=== PATIENT | female | born 1995 | race Caucasian/White ===

== ENCOUNTER 2022-05-22 20:42 | Emergency (ER) | payer OTHER, SELFPAY ==
[2022-05-22 21:05] VITALS: BP 137/86; PULSE 88; RESP 18; TEMP 36.8; O2SAT 98
[2022-05-22 21:52] LABS: Strep Group A RT-PCR NOT DETECTED (Negative)
[2022-05-22 22:00] LABS: Influenza A QL RT-PCR Positive (Negative); Influenza B QL RT-PCR Negative (Negative); SARS-CoV-2 RNA PCR Negative (Negative)
[2022-05-22 22:08] LABS: RSV RNA, RT-PCR Negative (Negative)
--- NOTE | 2022-05-22 23:02 | ED.URI ---
HPI - URI/Sore Throat General Chief Complaint: Upper Respiratory Infection Stated Complaint: possible r ear infection Time Seen by Provider: 05/22/22 20:46 Source: patient and RN notes reviewed Mode of arrival: ambulatory Limitations: no limitations History of Present Illness MD elicited complaint: cough, sore throat and nasal congestion Pertinent past history: sinusitis Onset (ago): day(s) (2) Consistency: constant and progressively worsening Severity: mild Pain scale (0-10): 5 Description of mucous: watery Able to tolerate fluids by mouth: Yes Exacerbating factors: nothing Relieving factors: OTC cold medicine Associated symptoms: myalgias, nasal congestion, sore throat, cough and ear pain Treatments prior to arrival: cold medicine Related Data Allergies Allergy/AdvReac Type Severity Reaction Status Date / Time No Known Allergies Allergy Verified 05/22/22 21:04 Review of Systems Review of Systems: All systems reviewed & are unremarkable except as noted in HPI and below Constitutional: Constitutional: Reports no additional constitutional complaints Eyes: Eyes: Reports no additional eye complaints ENT: Reports system reviewed and no additional complaints, except as documented Cardiovascular: Cardiovascular: Reports no additional cardiovascular complaints Respiratory: Respiratory: Reports no additional respiratory complaints Gastrointestinal: Gastrointestinal: Reports no additional gastrointestinal complaints Genitourinary: Genitourinary: Reports no additional female genitourinary complaints Musculoskeletal: Musculoskeletal: Reports no additional musculoskeletal complaints Integumentary/Breasts: Skin/Breast: Reports system reviewed and no additional complaints, except as docu Neurologic: Reports system reviewed and no additional complaints, except as documented Psychiatric: Psychiatric: Reports no additional psychiatric complaints Endocrine: Endocrine: Reports no additional endocrine complaints Hematologic/Lymphatic: Hematologic/Lymphatic: Reports no additional hematologic/lymphatic complaints Allergic/Immunologic: Allergic/Immunologic: Reports no additional allergic/immunologic complaints PMFSH Past Medical History Medical History Flu Pharyngitis Exam Const: General: no acute distress and well nourished Nutritional Appearance: well nourished Orientation/consciousness: patient oriented x3 Limitations: no limitations HENMT: Head: normal to inspection Ears: external ears normal, TM's normal bilaterally and EAC's normal Face/Nose/Sinus: Normal external nose present, Normal nares present, normal facial exam and sinuses nontender Face and sinus: normal facial exam and sinuses nontender Mouth: Yes Normal oral and palatal mucosa present and Yes moist mucous membranes Teeth and gingiva: dentition normal Throat: posterior oropharynx normal (mild pharyngeal redness) Eyes: Conjunctivae: conjunctivae normal Pupils: Equal, round and reactive pupils present EOM: EOMs intact bilaterally Neck: Neck: normal visual inspection, no lymphadenopathy and no meningeal signs Chest: Chest palpation & inspection: normal inspection of the chest Resp: Effort & Inspection: normal respiratory effort Auscultation: clear to auscultation bilaterally Cardio: Rate: regular rate Rhythm: regular rhythm GI: GI Palp: Yes Soft to palpation and No Tenderness to palpation present (GI) Auscultation: normal bowel sounds : General: Yes bladder normal to palpation and Yes no CVA tenderness Bimanual exam- vagina & uterus: bladder normal to palpation Back/Spine/Pelvis: Back: no CVA tenderness Skin: General skin exam: normal color Rashes: no rashes Wounds: no wounds Neuro: General: patient oriented x3, moves all extremities, no meningeal signs, no focal motor deficits and CN's II-XI intact bilaterally Cranial nerves: Yes Equal, round and reactive pupils present and Yes Ny
[2022-05-22] MEDS: guaiFENesin 12 HR 600 MG TABCR PO (23:14)
[2022-05-22] MEDS: IBUPROFEN 400 MG TABLET 800 MG PO (23:14)
[2022-05-22 23:17] VITALS: BP 130/80; PULSE 90; RESP 20; TEMP 37; O2SAT 95
== END 2022-05-22 23:20 | disposition home or self-care (01) ==
PROVIDERS: Emergency Provider Emergency Medicine
DX: H69.90 Unspecified Eustachian tube disorder, unspecified ear (principal); J10.1 Influenza due to other identified influenza virus with other respiratory manifestations; Z20.822 Contact with and (suspected) exposure to COVID-19
CPT/HCPCS: 87637; 87651; 99283; A9270

== ENCOUNTER 2022-07-17 08:55 | Emergency (ER) | payer OTHER, SELFPAY ==
[2022-07-17 08:55] VITALS: BP 159/97; PULSE 125; RESP 18; TEMP 36.8; O2SAT 99
--- NOTE | 2022-07-17 09:23 | PC.NURSE ---
Pt ambulated to bathroom with steady gait
--- NOTE | 2022-07-17 09:27 | ED.SKABFB ---
HPI - Skin/Abscess/Foreign Bdy General Chief complaint: Skin/Abscess/Foreign Body Stated complaint: abscess Time Seen by Provider: 07/17/22 09:27 Source: patient and RN notes reviewed Mode of arrival: ambulatory Limitations: no limitations History of Present Illness complaint: abscess/boil Onset (ago): day(s) (2) Location: genitals Severity: moderate Quality: burning, aching and constant Pain Consistency: constant Relieving factors: other (Compresses) Exacerbating factors: palpation Context: none Associated symptoms: denies other symptoms Treatments prior to arrival: none and attempted to drain pus at home Related Data Home Medications Medication Instructions Recorded Confirmed escitalopram oxalate 10 mg tablet 10 mg PO DAILY 07/17/22 07/17/22 gabapentin 100 mg capsule 100 mg PO TID 07/17/22 07/17/22 Allergies Allergy/AdvReac Type Severity Reaction Status Date / Time No Known Allergies Allergy Verified 07/17/22 09:05 Review of Systems Review of Systems: All systems reviewed & are unremarkable except as noted in HPI and below PMFSH Past Medical History Medical History (Updated 07/17/22 @ 09:40 by Titus Lin MD) Flu Pharyngitis Surgical History Surgical History (Updated 07/17/22 @ 09:37 by Titus Lin MD) History of bilateral tubal ligation History of section Exam Const: General: healthy appearing, no acute distress and alert Nutritional Appearance: well nourished Orientation/consciousness: patient oriented x3 Limitations: no limitations HENMT: Head: normal to inspection Ears: external ears normal Eyes: Conjunctivae: conjunctivae normal Pupils: Equal, round and reactive pupils present EOM: EOMs intact bilaterally Neck: Neck: normal visual inspection Resp: Effort & Inspection: normal respiratory effort Auscultation: clear to auscultation bilaterally Cardio: Rate: regular rate Rhythm: regular rhythm GI: GI Palp: Yes Soft to palpation and No Tenderness to palpation present (GI) Auscultation: normal bowel sounds Back/Spine/Pelvis: Cervical Spine: cervical ROM normal Thoracic/Lumbar Spine: thoraco-lumbar ROM normal Skin: General skin exam: normal color Lesions: lesion noted ( total of 4 abscesses right lower is draining) pustule bilateral labia majora borders well-defined, consistency soft, fluctuant and mobile, morphology and tender Neuro: General: patient oriented x3, no focal motor deficits and CN's II-XI intact bilaterally Speech: normal speech Gait exam (Neuro): Normal gait present Extrem: General: normal to inspection and no clubbing, cyanosis or edema Psych: Mental Status: mental status grossly normal Affect: normal affect Attitude: cooperative Course Vital Signs Vital signs: Vital Signs Temperature 36.8 C 07/17/22 08:55 Pulse Rate 125 H 07/17/22 08:55 Respiratory Rate 18 07/17/22 08:55 Blood Pressure 159/97 H 07/17/22 08:55 Pulse Oximetry 99 07/17/22 08:55 Oxygen Delivery Room Air 07/17/22 08:55 Temperature 36.8 C 07/17/22 08:55 Pulse Rate 125 H 07/17/22 08:55 Respiratory Rate 18 07/17/22 08:55 Blood Pressure 159/97 H 07/17/22 08:55 Pulse Oximetry 99 07/17/22 08:55 Oxygen Delivery Room Air 07/17/22 08:55 MDM - Skin/Abscess/Foreign Bdy MDM Narrative Medical decision making narrative: since patient has 4 different abscesses on bilateral labia going to start her on antibiotics rather than incise and drain. She is given strict follow-up instructions of following up with her water resources technical officer for possible I and D of the abscesses. Differential Diagnosis Differential diagnosis: Likely abscess of skin or subcutaneous tissue and other ( Bartholin's cyst abscess) Discharge Plan Discharge Clinical Impression: Abscess of skin or subcutaneous tissue Qualifiers: Site of cutaneous abscess: other site Qualified Code(s): L02.818 - Cutaneous abscess of other sites Patient Disposition: Home, Self-Care Conditio
--- NOTE | 2022-07-17 09:36 | PC.NURSE ---
This RN at bedside with MD as chief radiation therapist for pelvic exam
[2022-07-17 09:46] VITALS: PULSE 98; O2SAT 99
== END 2022-07-17 09:46 | disposition home or self-care (01) ==
PROVIDERS: Emergency Provider Emergency Medicine
DX: L02.818 Cutaneous abscess of other sites (principal)
CPT/HCPCS: 99283

== ENCOUNTER 2023-02-19 14:32 | Emergency (ER) | payer OTHER, SELFPAY ==
[2023-02-19 14:32] VITALS: BP 154/80; PULSE 120; RESP 18; TEMP 38.8; O2SAT 100
[2023-02-19] MEDS: ACETAMINOPHEN 500 MG TABLET 1000 MG PO (14:59)
[2023-02-19 15:22] LABS: Influenza A QL RT-PCR Negative (Negative); Influenza B QL RT-PCR Negative (Negative); SARS-CoV-2 RNA PCR Negative (Negative)
[2023-02-19 15:25] LABS: RSV RNA, RT-PCR Negative (Negative)
--- NOTE | 2023-02-19 15:41 | ED.GENADULT ---
HPI - General Adult General Chief complaint: Upper Respiratory Infection Stated complaint: BODY ACHES Time Seen by Provider: 02/19/23 14:35 Source: patient Mode of arrival: ambulatory Limitations: no limitations History of Present Illness HPI narrative: patient is a 27-year-old female with generalized body aches and pains. She has fatigue and myalgia. She is running a fever. Onset (ago): day(s) (1) Severity: moderate Severity scale (1-10): 5 Quality: aching and constant Pain Consistency: constant Relieving factors: none Exacerbating factors: none Associated symptoms: fever/chills, malaise and weakness Treatments prior to arrival: none Related Data Home Medications Medication Instructions Recorded Confirmed escitalopram oxalate 10 mg tablet 10 mg PO DAILY 07/17/22 02/19/23 gabapentin 100 mg capsule 300 mg PO BID 07/17/22 02/19/23 Allergies Allergy/AdvReac Type Severity Reaction Status Date / Time No Known Allergies Allergy Verified 02/19/23 14:43 Review of Systems Review of Systems: All systems reviewed & are unremarkable except as noted in HPI and below Constitutional: Constitutional: Reports no additional constitutional complaints Eyes: Eyes: Reports no additional eye complaints ENT: Reports system reviewed and no additional complaints, except as documented Cardiovascular: Cardiovascular: Reports no additional cardiovascular complaints Respiratory: Respiratory: Reports no additional respiratory complaints Gastrointestinal: Gastrointestinal: Reports no additional gastrointestinal complaints Genitourinary: Genitourinary: Reports no additional female genitourinary complaints Musculoskeletal: Musculoskeletal: Reports no additional musculoskeletal complaints Integumentary/Breasts: Skin/Breast: Reports system reviewed and no additional complaints, except as docu Neurologic: Reports system reviewed and no additional complaints, except as documented Psychiatric: Psychiatric: Reports no additional psychiatric complaints Endocrine: Endocrine: Reports no additional endocrine complaints Hematologic/Lymphatic: Hematologic/Lymphatic: Reports no additional hematologic/lymphatic complaints Allergic/Immunologic: Allergic/Immunologic: Reports no additional allergic/immunologic complaints PMFSH Past Medical History Medical History Flu Pharyngitis Surgical History Surgical History History of bilateral tubal ligation History of section Exam Const: General: no acute distress, alert and ill appearing; No confusion or diaphoretic Nutritional Appearance: well nourished Orientation/consciousness: patient oriented x3 Limitations: no limitations HENMT: Head: normal to inspection Ears: external ears normal Eyes: Conjunctivae: conjunctivae normal Pupils: Equal, round and reactive pupils present EOM: EOMs intact bilaterally Neck: Neck: normal visual inspection Chest: Chest palpation & inspection: normal inspection of the chest Resp: Effort & Inspection: normal respiratory effort Auscultation: clear to auscultation bilaterally Cardio: Rate: regular rate Rhythm: regular rhythm Heart sounds: no murmurs GI: Inspection: non-distended GI Palp: Yes Soft to palpation, No Tenderness to palpation present (GI), No Guarding due to palpation present (GI) and No Rigid due to palpation Auscultation: normal bowel sounds : General: Yes bladder normal to palpation Back/Spine/Pelvis: Back: no CVA tenderness Skin: General skin exam: normal color Rashes: no rashes Wounds: no wounds Neuro: General: patient oriented x3 Cranial nerves: Yes Nystagmus not present Speech: normal speech Gait exam (Neuro): Normal gait present Extrem: General: normal to inspection, no clubbing, cyanosis or edema and no pedal edema Psych: Mental Status: mental status grossly normal Affect: normal affect Attitu
[2023-02-19 15:45] VITALS: BP 132/70; PULSE 108; RESP 18; TEMP 37.4; O2SAT 100
[2023-02-19 15:49] VITALS: TEMP 37.4
--- NOTE | 2023-02-19 15:50 | PC.NURSE ---
PT IS DIAPHORETIC UPON DC. PT REPORTS SHE IS FEELING BETTER AT THIS TIME. NAD NOTED.
== END 2023-02-19 15:45 | disposition home or self-care (01) ==
PROVIDERS: Emergency Provider Emergency Medicine
DX: U07.1 COVID-19 (principal)
CPT/HCPCS: 87637; 99283

== ENCOUNTER 2023-09-19 16:27 | Emergency (ER) | payer OTHER, SELFPAY ==
[2023-09-19 16:31] VITALS: BP 144/98; PULSE 99; RESP 20; TEMP 37.1; O2SAT 98
--- NOTE | 2023-09-19 16:36 | ED.WOUNDLAC ---
HPI - Wound/Laceration General Chief Complaint: Wound/Laceration Stated Complaint: left side of chin skin infection Time Seen by Provider: 09/19/23 16:32 Source: patient Mode of arrival: ambulatory Limitations: no limitations History of Present Illness HPI narrative: has a abscess on her left lower chin area that she try to express/ pop but has led to some extension with erythema warmth tenderness and swelling nonfluctuant with tender submandibular gland mainly on the left with no shortness of breath no fever chills. Onset (ago): day(s) Location: other Place: home Related Data Home Medications Medication Instructions Recorded Confirmed escitalopram oxalate 10 mg tablet 10 mg PO DAILY 07/17/22 02/19/23 gabapentin 100 mg capsule 300 mg PO BID 07/17/22 02/19/23 Allergies Allergy/AdvReac Type Severity Reaction Status Date / Time No Known Allergies Allergy Verified 02/19/23 14:43 Review of Systems Review of Systems: All systems reviewed & are unremarkable except as noted in HPI and below PMFSH Past Medical History Medical History Flu Pharyngitis Surgical History Surgical History History of bilateral tubal ligation History of section Exam Const: General: healthy appearing and no acute distress Nutritional Appearance: well nourished Orientation/consciousness: patient oriented x3 Limitations: no limitations HENMT: Other: Red erythematous area and swelling left lower chin Eyes: Conjunctivae: conjunctivae normal Neck: Neck: lymphadenopathy Resp: Effort & Inspection: normal respiratory effort Auscultation: clear to auscultation bilaterally Cardio: Rate: regular rate Rhythm: regular rhythm Course Course Emergency Course: evaluated patient and will be sending antibiotics to her local pharmacy. Vital Signs Vital signs: Vital Signs Temperature 37.1 C 09/19/23 16:31 Pulse Rate 99 09/19/23 16:31 Respiratory Rate 20 09/19/23 16:31 Blood Pressure 144/98 H 09/19/23 16:31 Pulse Oximetry 98 09/19/23 16:31 Oxygen Delivery Room Air 09/19/23 16:31 Temperature 37.1 C 09/19/23 16:31 Pulse Rate 99 09/19/23 16:31 Respiratory Rate 20 04/04/24 16:31 Blood Pressure 144/98 H 09/19/23 16:31 Pulse Oximetry 98 09/19/23 16:31 Oxygen Delivery Room Air 09/19/23 16:31 Critical Care Time Critical Care Time Critical Care Time: No Discharge Plan Discharge Clinical Impression: Cellulitis and abscess of face Patient Disposition: Home, Self-Care Condition: Stable Instructions: Antibiotic Form, Cellulitis (ED) Additional Instructions: advised patient to take antibiotics as prescribed, and naproxen as needed and if symptoms persist or worsen should return to nearest emergency department otherwise follow-up primary care physician. Prescriptions: New amoxicillin-pot clavulanate [Augmentin] 500-125 mg tablet 1 tablet PO TID Qty: 30 0RF naproxen 500 mg tablet 500 mg PO BID PRN (Reason: pain) Qty: 20 0RF No Action gabapentin 100 mg capsule 300 mg PO BID escitalopram oxalate 10 mg tablet 10 mg PO DAILY Follow-up/Referrals: Live,Alma Walker MD [Primary Care Provider] - Time of Disposition: 16:40
--- NOTE | 2023-09-19 16:53 | PC.NURSE ---
On 09/19/23, the student, Radha Garcia, provided care and completed [facility] documentation on this patient. I have reviewed the student's documentation and agree with the findings.
[2023-09-19 16:54] VITALS: BP 137/84; PULSE 94; RESP 20; TEMP 37.1; O2SAT 99
== END 2023-09-19 16:54 | disposition home or self-care (01) ==
LOC: CHSED 16:46
PROVIDERS: Emergency Provider Emergency Medicine; PCP Family Medicine
DX: L02.01 Cutaneous abscess of face (principal)
CPT/HCPCS: 99283

== ENCOUNTER 2024-02-19 11:40 | Emergency (ER) | payer OTHER, SELFPAY ==
--- NOTE | ~2024-02-19 | XR_ITS ---
XR ankle LT min 3V 02/19/2024 11:57 Indication: Left ankle pain Procedure: 4 views left ankle Comparison: No prior studies for comparison. Findings: No acute fracture, subluxation or dislocation. Small loose body adjacent to the medial mall eolus. Ankle mortise intact. Talar dome is normal. Mild lateral soft tissue swelling.. Impression: 1: No acute bone or joint abnormality. Reviewed, dictated and finalized at location B. Impression: 1: No acute bone or joint abnormality.
[2024-02-19 11:40] VITALS: BP 122/87; PULSE 73; RESP 16; TEMP 36.6; O2SAT 98
--- NOTE | 2024-02-19 11:54 | ED.LOWEXIN ---
HPI - Extremity Injury (Lower) General Chief Complaint: Extremity Injury, Lower Stated Complaint: left ankle injury Time Seen by Provider: 02/19/24 11:44 Source: patient Mode of arrival: ambulatory History of Present Illness HPI Narrative: Patient is a 28-year-old female with a significant past medical history that presents today for left ankle injury. Patient states that she was stepping onto her camper and the conversation made her sleep she slipped off the step and hurt her left ankle. She does have a history of multiple left ankle sprains. Is very swollen around the left lateral malleolus. complaint: ankle injury Onset (ago): hour(s) Injury: Left: ankle Type of Injury: inversion Place: home Severity: mild Severity scale (1-10): 3 Relieving factors: nothing Exacerbating factors: weight bearing and movement Context: direct blow Associated symptoms: swelling Other symptoms: none Treatments prior to arrival: NSAIDS Related Data Allergies Allergy/AdvReac Type Severity Reaction Status Date / Time No Known Allergies Allergy Verified 02/19/24 11:43 Review of Systems Review of Systems: All systems reviewed & are unremarkable except as noted in HPI and below Constitutional: Constitutional: Reports as per HPI Eyes: Eyes: Reports no additional eye complaints ENT: Reports system reviewed and no additional complaints, except as documented Cardiovascular: Cardiovascular: Reports no additional cardiovascular complaints Respiratory: Respiratory: Reports no additional respiratory complaints Gastrointestinal: Gastrointestinal: Reports no additional gastrointestinal complaints Genitourinary: Genitourinary: Reports no additional female genitourinary complaints Musculoskeletal: Musculoskeletal: Reports no additional musculoskeletal complaints Integumentary/Breasts: Skin/Breast: Reports system reviewed and no additional complaints, except as docu Neurologic: Reports system reviewed and no additional complaints, except as documented Psychiatric: Psychiatric: Reports no additional psychiatric complaints Endocrine: Endocrine: Reports no additional endocrine complaints Hematologic/Lymphatic: Hematologic/Lymphatic: Reports no additional hematologic/lymphatic complaints Allergic/Immunologic: Allergic/Immunologic: Reports no additional allergic/immunologic complaints PMFSH Past Medical History Medical History Flu Pharyngitis Surgical History Surgical History History of bilateral tubal ligation History of section Exam Const: General: healthy appearing, no acute distress and alert Nutritional Appearance: well nourished Orientation/consciousness: patient oriented x3 HENMT: Head: normal to inspection Ears: external ears normal Face/Nose/Sinus: Normal external nose present Face and sinus: normal facial exam Eyes: Conjunctivae: conjunctivae normal Pupils: Equal, round and reactive pupils present EOM: EOMs intact bilaterally Neck: Neck: normal visual inspection Chest: Chest palpation & inspection: normal inspection of the chest Resp: Effort & Inspection: normal respiratory effort Auscultation: clear to auscultation bilaterally Cardio: Rate: regular rate Rhythm: regular rhythm GI: GI Palp: Yes Soft to palpation Back/Spine/Pelvis: Back: no CVA tenderness Skin: General skin exam: normal color Neuro: General: patient oriented x3 Cranial nerves: Yes Nystagmus not present Speech: normal speech Extrem: General: normal to inspection Psych: Mental Status: mental status grossly normal Course Vital Signs Vital signs: Vital Signs Temperature 97.8 F 02/19/24 11:40 Pulse Rate 73 02/19/24 11:40 Respiratory Rate 16 02/19/24 11:40 Blood Pressure 122/87 02/19/24 11:40 Pulse Oximetry 98 02/19/24 11:40 Oxygen Delivery Room Air 02/19/24 11:40 Temperature 97.8 F
--- NOTE | 2024-02-19 12:15 | PC.NURSE ---
Pt resting comfortably in stretcher.
[2024-02-19 13:13] VITALS: BP 132/87; PULSE 73; RESP 16; TEMP 35.9; O2SAT 98
== END 2024-02-19 13:13 | disposition home or self-care (01) ==
PROVIDERS: Emergency Provider Family Medicine; PCP Family Medicine
DX: S93.402A Sprain of unspecified ligament of left ankle, initial encounter (principal); W10.8XXA Fall (on) (from) other stairs and steps, initial encounter
CPT/HCPCS: 73610; 99283

== ENCOUNTER 2025-02-10 08:14 | Emergency (ER) | payer MEDICAID, SELFPAY ==
--- OUTSIDE RECORDS SUMMARY | 2019-01-19 08:05 | XMS_ITS | Continuity of Care Document ---
Author Organization [facility] Address [address] [facility] [address] [place] [address] Phone Care Team Providers Care Marker Delivery Name Role Phone Nellie Currie APRN Unavailable Unavailable Allergies, Adverse Reactions, Alerts Substance Reaction Status Criticality No Known Allergies Active No Inform ation Medications Medication Instructions Dosage Effective Dates (start - stop) Status Comments Macrobid 100 mg capsule take 1 capsule by oral route every 12 hours with food for 5 days 100 MG - Active labetalol 200 mg tablet take 1 tablet by ORAL route 2 times every day 200 MG - Active Zithromax Z-[place] 250 mg tablet take 2 tablet by oral route every day for 1 day then 1 tablet (250 mg) by oral route once daily for 4 days 500 MG - No Longer Active Procedures Procedure Date Office/outpatient visit,est, mod 2018 No Charge Per Provider Urinalysis, automated w/microscopy Office/outpatient visit,est, mod 2016 No Charge Follow Up Office/outpatient visit,est, mod 2016 Office/outpatient visit,est, mod 2015 EKG Echo Complete All Dopplers Metabolic panel, basic Venipuncture Automated hemogram (CBC)L No Charge Urinalysis, automated w/microscopy Chest x-ray, two views Office/outpatient visit,est, mod 2015 THER/PROPH/DIAG INJ, SC/IM Toradol inj 15mg Ceftriaxone Injection 250 MG 1 GM Vial J THER/PROPH/DIAG INJ, SC/IM Ceftriaxone Injection 250 MG 1 GM Vial J Office/outpatient visit,fan rodriguez 2014 Advance Directives Directive Yes / No Effective Date File Name No Information Encounters Encounter Description Practice Location Reason(s) For Visit Diagnoses Date Provider Providers Copied on Encounter Office/outpa tient visit,[facility], [facility], [address], [id number], tel:[phone] [facility] [place] [facility] sore throat (chief complaint) CoughAcute upper respiratory infection, unspecified 9 [facility] [address], [id number], . tel:[phone] Referring Provider: Nellie Hendersonh, [address], [address]. tel:[phone] [facility], [address], [id number], tel:[phone] [facility] [place] Dizziness and giddiness [address]. [address], [place], [place], [id number], [place]. tel:[phone] Referring Provider: Ambreen Ace, [address], [place], [address]. tel:[phone] Office/outpa tient visit,[facility], [facility], [address], [id number], [place] tel:[phone] [facility] [place] shortness of breath (chief complaint) Urinary tract infection, site not specifiedDiz ziness and giddiness [address]. [address], [place], [place], [id number], [place]. tel:[phone] Referring Provider: Ambreen Ace, [address], [place], [address]. tel:[phone] [facility], [address] [place] [address], [id number], [place] tel:[phone] [facility] Ear pain (chief complaint) Otitis media, unspecified, left ear 7 Nasim Hall. [address], [place], [id number], [place]. tel:[phone] Referring Provider: Rafael Braswell, [address], [place], [address]. tel:[phone] Office/outpa tient visit,est, [facility], [address], [place], [id number], [place] tel:[phone] [facility] e Ear pain (chief complaint) Otitis media, unspecified, right ear 7 Nasim Hall. [address], [place], [place], [id number], [place]. tel:[phone] Referring Provider: Rafael Braswell, [address], [place], [address]. tel:[phone] Office/outpa tient visit,est, [facility], [address], [place], [place], [id number], [place] tel:[phone] [facility] Dyspnea (chief complaint) Dizziness (chief complaint) follow up (chief complaint) Mitral valve vegetation 6 Gregg Samuels. [address], [place], [place], [id number], [place]. tel:[phone] Referring Provider: Akua Eddy, [address] [place] [address], [place], [address]. tel:[phone] [facility], [address] [place], [place] [address] [address] [place] [address], [id number], tel:[phone] [facility] No Information 6 Bruce Gu. [address] [facility] , [address] [place] [address], [id number], [place]. tel:[phone] Referring Provider: Akua Eddy, [address] [place] [address], [address]. tel:[phone] [facility], [address] [place] [address], [id number], tel:[phone] [facility] Fever, unspecified 6 Nikolai Fatima. [facility] , [address], [id number], [place]. tel:[phone] Referring Provider: Akua Eddy, [address] [place] [address], [address]. tel:[phone] [facility], [address] [place] [address], [id number], tel:[phone] [facility] No Information 6 Bruce Gu. [address], [address] [place] [address], [id number], [place]. tel:[phone] Referring Provider: Akua Eddy, [address] [place] [address], [address]. tel:[phone] Office/outpa tient visit,est, mod [facility], [address] [place] [address], [id number], tel:[phone] [facility] nidia Headache (UC) (chief complaint) Tooth abscessHypok alemia 6 Head Akua. [address] [place], [place] [address], [id number], . tel:[phone] Referring Provider: Akua Eddy, [address] [place] [address], [address] [place] [address]. tel:[phone] [facility], [address] [place] [address], [id number], tel:[phone] [facility] nidia No Information 6 Head Akua. [address] [place] [address], [id number], . tel:[phone] Referring Provider: Akua Eddy, [address] [place] [address], [address] [place] [address]. tel:[phone] Office/outpa tient visit,new, [facility], [address] [place] [address], [id number], tel:[phone] [facility] New patient visit (chief complaint) HeadacheChia ri malformation Family history of breast cancer [place]. [facility] [place], [id number], . tel:[phone] Referring Provider: Amos Calzada, [address] [place], [address]. tel:[phone] Family History Family Member Type Diagnosis Age At Onset Mother Problem (finding) diabetes melli tus in first degree relative Maternal grandfather Problem (finding) coronary arteri osclerosis Maternal aunt Problem (finding) breast cancer Maternal aunt Problem (finding) malignant neoplasm of ovary Maternal aunt Problem (finding) malignant neoplasm of lung Payers Payer name Insurance type Covered republican ID Authoriza tijam(s) [employer] Medicaid [id number] Social History Type Description Quantity Date Captured Comments Alcohol Use Details Unknown Caffeine Use Details Unknown Tobacco Use Status No Information Smoking Status No Information Sex Female Chief Complaint And Reason For Visit From encounter dated '01/19/2019 13:05'. sore throat (chief complaint). Description: Onset: 2 Days. The symptoms are persistent. Associated symptoms include cough. Reason For Referral Reason For Referral No Information Plan Of Treatment Date Type Action Status Goal PAP. Due on due Goal Flu Vaccine (18 to 64). Due on due Goal HPV (1st). Due on 9 due Goal Tdap. Due on due Goal Flu (3 Years and above). Due on due Goal Td vaccine. Due on 19 due Goal Depression screening. Due on due Goal PAP. Due on due Goal HPV (1st). Due on 7 due Goal Depression screening. Due on due Goal Tdap. Due on due Goal Td vaccine. Due on 17 due Goal Flu (3 Years and above). Due on due Future Order: Lab Order Potassium (K), Se nt on: Sent Future Order: Lab Order Complete Blood Count (CBC), Sent on: Sent Future Order: Lab Order Comprehe nsive Metabolic Panel (CMP), Sent on: Sent Future Order: Lab Order Lipid Panel (LIPI D), Sent on: Sent Future Order: Lab Order TSH (TSH), Sent o n: Sent Future Order: Lab Order Vitamin D, 25-Hydroxy ([id number]), Sent on: Sent Future Order: Lab Order Vitamin B12 (B12) , Sent on: Sent History Of Present Illness Encounter Date Complaint History Of Prese nt Illness sore throat Onset: 2 Days. T he symptoms are persistent. Associated symptoms include cough. shortness of breath Ear pain Ear pain Dyspnea Dizziness follow up Ms. Lim was s een in [facility] on 12/06/15 and noted to have a dental abscess. She had fever, chills and appeared very ill. Echocardiogram was completed. She is here for discussion of results. Ms. Lim denies any chest discomfort, fever, chills or illness since having the dental abscess treated with antibiotics. 2 sets of blood cultures were negative. Patient states she's felt very well. She exercises several days a week without issue, fatigue, chest discomfort or shortness of breath. No rash or unusual symptoms noted. Headache (UC) New patient visit She has no PCP , She has congenital Chiari Malformation, she has just obtained health insurance, she quit smoking recently, her aunts had breast cancer and one had ovarian cancer in their thirties and fourties. 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 She c/o HAs frequent, dull, pounding, bilateral, no change, no work up since diagnosis. Functional Status Date Functional Assessmen t No Information Instructions Date Instruction Additional Infor brayan BRCA1 and 2 pending Related to F amily history of breast cancer Consult to Neurology pending Rel ated to Chiari malformation Sart topiramate, Lab work up, FU one month Related to Headache Assessments Type Assessment Date assessment Cough assessment Acute upper respiratory infectio n, unspecified Mental Status Date Cognitive Assessment Orientation - [place] ed to time, place, person, situation. Patient Care Teams Name Effective Dates (start - stop) Status Members No Information
--- NOTE | ~2025-02-10 | CT_ITS ---
EXAMINATION: CT cervical spine wo marcus, 02/10/2025 8:43 CDT HISTORY: neck pain COMPARISON: No comparisons available. Technique: Axial images were obtained of the spine per protocol. One or more of the following dose reduction techniques were used: automated exposure control, adjustment of the mA and/or kV according to patient size, use of iterative reconstruction technique. Unless otherwise stated, incidental findings do not require dedicated follow up imaging Findings: The vertebral heights are intact. No fracture or subluxation. The disc heights are intact. Soft tissues unremarkable Impression: No acute abnormality. Reviewed, dictated and finalized at location A. Impression: No acute abnormality.
[2025-02-10 08:14] VITALS: BP 124/89; PULSE 99; RESP 18; TEMP 36.9; O2SAT 98
--- NOTE | 2025-02-10 08:41 | ED_ITS ---
HPI - Neck Pain/Injury General Chief Complaint: Neck Pain/Injury Stated Complaint: Neck pain Time Seen by Provider: 02/10/25 08:31 Source: patient Mode of arrival: ambulatory Limitations: no limitations History of Present Illness HPI Narrative: 29-year-old female presents to the ED with a 3 day history of -- neck pain which radiates down the spine. -- She has numbness and tingling in the upper neck which radiates across the upper back. No radiation to the arms. No motor or sensory deficit of the upper extremities. No difficulty walking /gait. No history of trauma. No history of MVA in the past no bladder or bowel involvement. MD complaint: neck pain Onset (ago): day(s) ( Three days) Radiation: right shoulder, left shoulder and upper back Quality: aching Duration: constant Relieving factors: immobilization Exacerbating factors: movement of extremity Associated symptoms: none Treatments prior to arrival: none Related Data Allergies Allergy/AdvReac Type Severity Reaction Status Date / Time No Known Allergies Allergy Verified 02/10/25 08:17 Review of Systems Review of Systems: All systems reviewed & are unremarkable except as noted in HPI and below Constitutional: Constitutional: Reports as per HPI and Reports no additional constitutional complaints Eyes: Eyes: Reports as per HPI and Reports no additional eye complaints ENT: Reports system reviewed and no additional complaints, except as documented and Reports as per HPI Cardiovascular: Cardiovascular: Reports as per HPI and Reports no additional cardiovascular complaints Respiratory: Respiratory: Reports as per HPI and Reports no additional respiratory complaints Gastrointestinal: Gastrointestinal: Reports as per HPI and Reports no additional gastrointestinal complaints Genitourinary: Genitourinary: Reports no additional female genitourinary complaints and Reports as per HPI Musculoskeletal: Musculoskeletal: Reports no additional musculoskeletal complaints and Reports as per HPI Comments: neck pain radiating down spine and across the upper back. Integumentary/Breasts: Skin/Breast: Reports system reviewed and no additional complaints, except as docu and Reports as per HPI Neurologic: Reports system reviewed and no additional complaints, except as documented and Reports as per HPI Comments: No sensory motor deficit of the upper extremities. Psychiatric: Psychiatric: Reports no additional psychiatric complaints and Reports as per HPI Endocrine: Endocrine: Reports no additional endocrine complaints and Reports as per HPI Hematologic/Lymphatic: Hematologic/Lymphatic: Reports no additional hematologic/lymphatic complaints and Reports as per HPI Allergic/Immunologic: Allergic/Immunologic: Reports no additional allergic/immunologic complaints and Reports as per [facility] Past Medical History Medical History Pharyngitis Flu Surgical History Surgical History History of bilateral tubal ligation History of section Exam Narrative: Vitals are stable Const: General: no acute distress Limitations: no limitations HENMT: Head: normal to inspection Ears: external ears normal Face/Nose/Sinus: Normal external nose present Face and sinus: normal facial exam Mouth: Yes Normal oral and palatal mucosa present Throat: posterior oropharynx normal Eyes: Conjunctivae: conjunctivae normal Pupils: Equal, round and reactive p upils present EOM: EOMs intact bilaterally Direct Ophthalmoscopy: no photophobia Neck: Neck: normal visual inspection, no lymphadenopathy and no meningeal signs Other: no spinal tenderness noted. Tenderness of paraspinal muscles and bilateral suprascapular muscles. Resp: Effort & Inspection: normal respiratory effort Auscultation: clear to auscultation bilaterally Cardio: Rate: regular rate Rhythm: regular rhythm GI: GI Palp: Yes Soft to palpation Other: No tenderness/rigidity / rebound. : General: Yes no CVA tenderness Back/Spine/Pelvis: Back: no CVA tenderness Skin: General skin exam: normal color Rashes: no rashes Wounds: no wounds Neuro: General: patient oriented x3, moves all extremities, no meningeal signs and CN's II-XI intact bilaterally Cranial nerves: Yes Nystagmus not present Speech: normal speech Other: Deep tendon reflexes of bilateral upper extremities are intact. Extrem: General: normal to inspection and no clubbing, cyanosis or edema Psych: Mental Status: mental status grossly normal Affect: normal affect Attitude: cooperative Course Course Emergency Course: Neck pain-- no history of trauma. No motor or sensory deficit. Bilateral DTR of her upper extremities are intact. CT of the C-spine did not show any acute findings will order Toradol IM. Vital Signs Vital signs: Vital Signs Temperature 36.9 C 02/10/25 08:14 Pulse Rate 99 02/10/25 08:14 Respiratory Rate 18 02/10/25 08:14 Blood Pressure 124/89 02/10/25 08:14 Pulse Oximetry 98 02/10/25 08:14 Oxygen Delivery Room Air 02/10/25 08:14 Temperature 36.9 C 02/10/25 08:14 Pulse Rate 99 02/10/25 08:14 Respiratory Rate 18 02/10/25 08:14 Blood Pressure 124/89 02/10/25 08:14 Pulse Oximetry 98 02/10/25 08:14 Oxygen Delivery Room Air 02/10/25 08:14 MDM - Neck Pain/Injury MDM Narrative Medical decision making narrative: neck pain Differential Diagnosis Differential diagnosis: Likely cervical radiculopathy Lab Data Attestation: I reviewed the patient's lab results. Discharge Plan Discharge Clinical Impression: Cervical myofascial strain Qualifiers: Encounter type: initial encounter Qualified Code(s): S16.1XXA - Strain of muscle, fascia and tendon at neck level, initial encounter Patient Disposition: Home Condition: Stable Instructions: Antibiotic Form, Cervical Sprain (ED) Patient Language: Bengali Prescriptions: New diclofenac sodium 50 mg tablet,delayed release (DR/EC) 50 mg PO Q12H PRN (Reason: pain) Qty: 20 0RF Follow-up/Referrals: Live,Alma Walker MD [Primary Care Provider, Unknown] Time of Disposition: 09:33
[2025-02-10 09:52] VITALS: BP 116/84; PULSE 87; RESP 18; TEMP 36.9; O2SAT 98
[2025-02-10] MEDS: KETOROLAC 30 MG/ML VIAL (*BKC) IM (09:55)
== END 2025-02-10 10:05 | disposition home or self-care (01) ==
PROVIDERS: Emergency Provider Internal Medicine Critical Care Medicine; PCP Family Medicine
DX: S16.1XXA Strain of muscle, fascia and tendon at neck level, initial encounter (principal); X58.XXXA Exposure to other specified factors, initial encounter
CPT/HCPCS: 72125; 96372; 99284; J1885